=== PATIENT | male | born 1965 | race African-American/Black ===

== ENCOUNTER 2019-11-09 20:19 | Emergency (ER) | payer SELFPAY ==
--- NOTE | 2019-11-09 20:23 | XR_ITS ---
WS: [id number] Portable AP upright chest, 11/09/2019 Clinical Data: chest pain Comparison: Portable chest, 06/22/2015. Findings: No nodules, masses or effusions are seen. The heart is normal. The pulmonary vascularity is not increased. No pneumonia or pneumothorax is seen. XR/XR chest 1V portable [id number] Impression: Negative chest.
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
[2019-11-09 20:26] VITALS: BMI 23.4
[2019-11-09 20:30] VITALS: BP 124/88; PULSE 75; RESP 18; TEMP 37; O2SAT 98
--- NOTE | 2019-11-09 20:32 | PC.NURSE ---
PT DISTANT DIFFICULT TO GET PT TO ANSWER QUESTIONS OR GIVE ANY TYPE OF HISTORY DURING TRIAGE WHEN ASKED IF ALLERGIC TO ANY MEDS STATES IM ALLERGIC TO EVERYTHING
[2019-11-09 20:45] LABS: Basophils % 0.3 %; Eosinophils # 0.1 10^3/uL (0.0-0.8); Hematocrit 45.2 % (42.0-52.0); Hemoglobin 14.4 g/dL (11.7-16.6); Lymphocytes # 2.1 10^3/uL (0.8-4.8); Lymphocytes % 34.5 %; Mean Corpuscular HGB Conc 31.9 g/dL (30.0-36.0); Mean Corpuscular Hemoglobin 27.3 pg (28.0-34.0); Mean Corpuscular Volume 85.6 fL (80-94); Mean Platelet Volume 9.5 fL (7.4-10.4); Monocytes # 0.6 10^3/uL (0.2-0.9); Monocytes % 9.6 %; Neutrophils # 3.3 10^3/uL (1.8-7.7); Neutrophils % 54.4 %; Nucleated Red Blood Cells % 0 %; Platelet Count 263 10^3/cmm (130-400); Red Blood Count 5.28 10^6/uL (4.1-5.3); Red Cell Distribution Width 12.9 % (12.1-15.1); White Blood Count 6.1 10^3/uL (4.0-10.0)
[2019-11-09 20:54] LABS: Alanine Aminotransferase 15 U/L (0-41); Alkaline Phosphatase 71 IU/L (40-130); Aspartate Amino Transferase 20 U/L (0-40); Blood Urea Nitrogen 17 mg/dL (6-20); Calcium 9.7 mg/dL (8.5-10.5); Carbon Dioxide 29 mmol/L (22-29); Chloride 101 mmol/L (98-107); Globulin 3.6 g/dL (1.3-4.6); Glomerular Filtration Rate 83.8 mL/min (90-130); Glucose 108 mg/dL (65-115); Osmolality Calculated 287 mOsm/kg (285-295); Sodium 140 mmol/L (136-145); Total Bilirubin 0.3 mg/dL (0.15-1.2); Total Protein 7.6 g/dL (6.6-8.7)
[2019-11-09 20:56] LABS: Troponin T (5th) Once 11 ng/mL (0-15)
[2019-11-09 21:25] VITALS: BP 113/92; PULSE 79; RESP 18; O2SAT 99
== END 2019-11-09 21:25 | disposition home or self-care (01) ==
LOC: ER 21:16
PROVIDERS: Emergency Provider Nurse Practitioner Family
DX: S20.219A Contusion of unspecified front wall of thorax, initial encounter (principal); S20.229A Contusion of unspecified back wall of thorax, initial encounter; F17.200 Nicotine dependence, unspecified, uncomplicated; W22.8XXA Striking against or struck by other objects, initial encounter
CPT/HCPCS: 12345; 36415; 71045; 80053; 84484; 85025; 99281; 99283

== ENCOUNTER 2020-04-12 19:51 | Emergency (ER) | payer SELFPAY ==
[2020-04-12 19:57] VITALS: BP 150/96; PULSE 60; RESP 17; TEMP 36.7; O2SAT 97; BMI 24.3
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
[2020-04-12 20:24] LABS: Basophils % 0.5 %; Eosinophils # 0.1 10^3/uL (0.0-0.8); Eosinophils % 1.5 %; Hematocrit 44.3 % (42.0-52.0); Hemoglobin 13.8 g/dL (11.7-16.6); Lymphocytes # 2.1 10^3/uL (0.8-4.8); Lymphocytes % 38.3 %; Mean Corpuscular HGB Conc 31.2 g/dL (30.0-36.0); Mean Corpuscular Hemoglobin 27.8 pg (28.0-34.0); Mean Corpuscular Volume 89.1 fL (80-94); Mean Platelet Volume 9.3 fL (7.4-10.4); Monocytes # 0.4 10^3/uL (0.2-0.9); Neutrophils # 2.87 10^3/uL (1.8-7.7); Neutrophils % 52.5 %; Nucleated Red Blood Cells % 0 %; Platelet Count 240 10^3/cmm (130-400); Red Blood Count 4.97 10^6/uL (4.1-5.3); Red Cell Distribution Width 12.6 % (12.1-15.1); White Blood Count 5.5 10^3/uL (4.0-10.0)
[2020-04-12] MEDS: sodium chloride 0.9% 1,000 ML 999 ML IV (20:30)
[2020-04-12 20:46] LABS: Alanine Aminotransferase 9 U/L (0-41); Albumin Level 3.9 g/dL (3.5-5.2); Alkaline Phosphatase 57 IU/L (40-130); Anion Gap 12.3 (5-19); Aspartate Amino Transferase 22 U/L (0-40); Blood Urea Nitrogen 14 mg/dL (6-20); Calcium 8.7 mg/dL (8.5-10.5); Carbon Dioxide 29 mmol/L (22-29); Chloride 102 mmol/L (98-107); Globulin 3.7 g/dL (1.3-4.6); Glomerular Filtration Rate 93.5 mL/min (90-130); Glucose 162 mg/dL (65-115); Lipase 16 U/L (13-60); Osmolality Calculated 288 mOsm/kg (285-295); Potassium 4.3 mmol/L (3.5-5.1); Sodium 139 mmol/L (136-145); Total Bilirubin 0.2 mg/dL (0.15-1.2); Total Protein 7.6 g/dL (6.6-8.7)
[2020-04-12] MEDS: iohexol 300 mg/mL 100 mL Btl IV (20:49)
[2020-04-12 21:55] LABS: Add Urine Microscopic? NO
[2020-04-12 21:58] LABS: Bilirubin Urine Neg (NEGATIVE); Blood Urine Neg (Negative); Glucose Urine UA Norm (Normal); Ketones Urine Negative (Negative); Leukocyte Esterase Urine Negative (Negative); Nitrate Urine Negative (Negative); Protein Urine Neg (Negative); Specific Gravity, Urine 1.015 (1.005-1.030); Urine Appearance Clear (CLEAR); Urine Color Yellow (Yellow); Urobilinogen Urine 1 mg/dL (Negative); pH Urine 7 (5-7)
[2020-04-12] MEDS: magnesium hydroxide 30 mL UDC PO (22:11)
[2020-04-12 22:12] VITALS: BP 118/77; PULSE 65; RESP 16; O2SAT 100
== END 2020-04-12 22:21 | disposition home or self-care (01) ==
PROVIDERS: Emergency Provider Physician Assistant
DX: K59.00 Constipation, unspecified (principal); F17.210 Nicotine dependence, cigarettes, uncomplicated
CPT/HCPCS: 12345; 36415; 74177; 80053; 81003; 83690; 85025; 96361; 96374; 99282; 99283; J0131; J7030; Q9967

== ENCOUNTER 2020-05-16 17:38 | Emergency (ER) | payer SELFPAY ==
--- NOTE | 2020-05-16 17:41 | W.ED.EAR ---
HPI - Ear Problem General: Chief complaint: Ear Stated complaint: EARACHE Time Seen by Provider: 05/16/20 17:41 History of Present Illness: HPI Narrative: Patient is a 54-year-old male who comes to the ED with left upper jaw pain and left ear ache. Patient was recently diagnosed with left otitis externa and is currently been taking antibiotic eardrops. He is also complaining of having some left upper jaw pain that he rates about a 7 out of 10. Patient also says that he has had dental pain preceding left side face and maxillary pain. Patient said he has been dealing with a bad tooth in his back upper left jaw. Associated symptoms: Reports ear or mastoid pain (left ear); Denies fever(s), headache(s) or neck pain Review of Systems Const: Denies: fever(s), chills or fatigue Eyes: Denies: change in vision or eye discomfort ENMT: Reports: dental pain (left maxillary jaw and left side of face) and ear or mastoid pain (left ear); Denies: throat pain, odynophagia, nasal discharge or nasal congestion Card: Denies: chest pain, palpitations, edema, swelling of feet/ankles, dyspnea on exertion or orthopnea Resp: Denies: dyspnea, productive cough or non-productive cough GI: Denies: abdominal pain, nausea, vomiting, diarrhea, constipation or hematochezia : Denies: flank pain, difficulty urinating, dysuria or hematuria Musc: Denies: neck pain, back pain or extremity swelling Skin/Breast: Denies: rash or new lesions Neuro: Denies: headache(s), numbness in extremities or weakness in extremities COUNTS INCLUDE 234 BEDS AT THE [facility] ED PFSH: Social History Smoking and tobacco status: current every day smoker Physical Exam Const: COMMON NORMALS: no acute distress, patient oriented x3 and alert GENERAL APPEARANCE: cooperative and comfortable HENMT: COMMON NORMALS: normocephalic and TM's normal bilaterally HEAD & SCALP: normocephalic FACE & SINUS: Facial tenderness on exam of face and sinuses on the left maxilla EXTERNAL AUDITORY CANAL: Abnormal EAC present EAC laterality: left Details: erythema and edema TYMPANIC MEMBRANE: TM's normal bilaterally MOUTH: Normal oral and palatal mucosa present TEETH & GINGIVA: Yes abnormal tooth and associated gingiva upper left second molar tender and with associated gingival edema, Yes caries and Yes poor dentition THROAT: posterior oropharynx normal and uvula midline Neck/C-Spine: COMMON NORMALS: supple GENERAL: Yes normal visual inspection Resp: COMMON NORMALS: normal respiratory effort, No retractions, No use of accessory muscles and clear to auscultation bilaterally AUSCULTATION: clear to auscultation bilaterally Cardio: COMMON NORMALS: regular rate, regular rhythm, S1 normal heart sound present, S2 normal heart sound present, No gallops present (Cardio), No clicks present (Cardio), No murmurs present (Cardio) and Peripheral pulses 2+ throughout RATE: regular rate RHYTHM: regular rhythm HEART SOUNDS: S1 normal heart sound present and S2 normal heart sound present PERIPHERAL PULSES: Peripheral pulses 2+ throughout GI: COMMON NORMALS: Normal to inspection, nondistended, normoactive bowel sounds present, Soft to palpation, non-tender and no masses PALPATION: Yes Soft to palpation : COMMON NORMALS: Yes no CVA tenderness BLADDER/KIDNEY EXAM: Yes no CVA tenderness Back/Pelvis: COMMON NORMALS: no CVA tenderness Extremity: COMMON NORMALS: normal to inspection Neuro: COMMON NORMALS: patient oriented x3 and moves all extremities SENSORIUM/ORIENTATION: Yes alert Skin: COMMON NORMALS: no rashes or lesions noted GENERAL SKIN EXAM: no rashes or lesions noted and dry skin Course Vital Signs: Vital signs: Vital Signs Temperature 97.8 F 05/16/20 17:42 Pulse Rate 76 05/16/20 17:42 Respiratory Rate 14 05/16/20 17:42 Blood Pressure 149/93 05/16/20 17:42 Pulse Oximetry 98 05/16/20 17:42 MDM - Ear MDM Narrative: Medical decision making narrative: Patient is a 54-year-old male who comes to the ED with left ear pain, dental pain and left maxillary jaw and left-sided face pain. Patient is currently being treated for otitis externa in the left ear and has been using antibiotic eardrops. Exam shows erythema and edema of the EAC of the left ear. TMs were normal bilaterally. Patient has extensive dental caries throughout mouth. He has some gingival edema and erythema. Patient diagnosed with extensive dental caries causing dental pain. He was told to contact a dentist to set up an appointment with them in the next 1 to 2 weeks to get problem addressed. I told him to continue using previously prescribed eardrops in the left ear to treat otitis externa. Patient was sent home with a prescription of clindamycin. Patient understood and agreed with plan. Discharge Plan Discharge Patient Disposition: Home Clinical Impression: Pain due to dental caries Otitis externa Qualifiers: Otitis externa type: unspecified type Chronicity: acute Laterality: left Qualified Code(s): H60.502 - Unspecified acute noninfective otitis externa, left ear Condition: Stable Prescriptions: New clindamycin HCl 150 mg capsule 150 mg PO QID 7 Days Qty: 28 RF: 0 No [place] Milk of Magnesia 400 mg/5 mL suspension 30 ml PO BID PRN (Reason: constipation) Qty: 355 RF: 0 Discharge Orders: Discharge Order (Routine); Ordered 05/16/20 Ordered By: Jarret Prasad Discharge Diet: Regular Discharge Activity: Resume usual activity Patient Instructions: Dental Caries (ED) Activity Restrictions/Additional Instructions: Follow-up with with dentist in the next 7 to 10 days to address dental pain. Take medications as prescribed. Continue using previously prescribed eardrops on the left ear. Return to the ER or your medical provider if condition worsens. Please read and understand discharge instructions. If any questions, please ask. Coding Level of Care Code ED Assistant To The President for Alberto Fwd Exam Comprehensive
[2020-05-16 17:42] VITALS: BP 149/93; PULSE 76; RESP 14; TEMP 36.6; O2SAT 98; BMI 22.1
[2020-05-16] MEDS: clindamycin 150 mg Capsule 300 MG PO (18:09)
== END 2020-05-16 18:12 ==
LOC: ER 06-14 11:38
PROVIDERS: Emergency Provider Physician Assistant
DX: H60.502 Unspecified acute noninfective otitis externa, left ear (principal); K02.9 Dental caries, unspecified; F17.210 Nicotine dependence, cigarettes, uncomplicated
CPT/HCPCS: 12345; 99281

== ENCOUNTER 2020-06-03 22:28 | Emergency (ER) | payer SELFPAY ==
[2020-06-03 22:39] VITALS: BP 160/93; PULSE 104; RESP 14; TEMP 36.7; O2SAT 99; BMI 20.4
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
[2020-06-04] MEDS: TRAMadol 50 mg Tablet PO (00:38)
--- NOTE | 2020-06-04 06:05 | PC.NURSE ---
Patient calm and cooperative at discharge. Patient appeared to be resting peacefully without difficulties. Respirations were even and unlabored. Patient verbalized an understanding to the discharge instructions.
[2020-06-04 06:08] VITALS: BP 148/80; PULSE 90; RESP 16; O2SAT 99
== END 2020-06-04 06:09 | disposition home or self-care (01) ==
PROVIDERS: Emergency Provider Nurse Practitioner Family
DX: M54.2 Cervicalgia (principal); Y04.8XXA Assault by other bodily force, initial encounter; F17.210 Nicotine dependence, cigarettes, uncomplicated
CPT/HCPCS: 12345; 72040; 72100; 73130; 99282; 99283